=== PATIENT | female | born 1985 | race Two or more races ===

== ENCOUNTER → 2018-04-04 | Emergency (ER) | payer OTHER ==
[~2018-04-04] VITALS: Ht 167.6 cm; Wt 78.9 kg
[~2018-04-04] MED LIST: PROGESTERONE200 MG
== END | disposition home or self-care (01) ==
LOC: ER 03:06
DX: O02.1 Missed abortion (principal); Z34.01 Encounter for supervision of normal first pregnancy, first trimester

== ENCOUNTER → 2018-04-05 | Day surgery (SDC) | payer OTHER ==
[~2018-04-05] VITALS: Ht 167.6 cm; Wt 78.9 kg
== END | disposition home or self-care (01) ==
LOC: ER 12:33 → CIR.AMB 13:25
DX: O02.1 Missed abortion (principal)

== ENCOUNTER 2019-06-19 08:24 | Inpatient (IN) | payer OTHER ==
[~2019-06-19] VITALS: Ht 167.6 cm; Wt 92.5 kg
[2019-06-19] MEDS ORDERED: PRENATAL TABLE1 EAC1 PO (08:39)
[2019-06-19] MEDS ORDERED: IRON325 MG PO (08:39)
[2019-06-19] MEDS ORDERED: FOLIC ACID20 MG PO (08:40)
[2019-06-19] MEDS ORDERED: VITAMIN D1000 UNI1 PO (08:40)
== END 2019-06-21 11:06 | disposition home or self-care (01) | DRG 807 ==
LOC: SURG-SUITE 08:24 → LDR 08:24 → SURG-SUITE 21:32
PROVIDERS: ADMIT Obstetrics & Gynecology
PROC: 10E0XZZ Delivery of Products of Conception, External Approach (ICD-10-PCS; principal; 2019-06-19)
PROC: 3E033VJ Introduction of Other Hormone into Peripheral Vein, Percutaneous Approach (ICD-10-PCS; 2019-06-19)
PROC: 4A1HXCZ Monitoring of Products of Conception, Cardiac Rate, External Approach (ICD-10-PCS; 2019-06-19)
DX: O80 Encounter for full-term uncomplicated delivery (principal); Z37.0 Single live birth; Z3A.38 38 weeks gestation of pregnancy

== ENCOUNTER → 2019-12-21 | Emergency (ER) | payer OTHER ==
[~2019-12-21] VITALS: Ht 167.6 cm; Wt 90.7 kg
[~2019-12-21] MED LIST changes: +ATARAX25 MG; +BENADRYL25 MG; +FLUCONAZOLE50 MG; +FOLIC ACID20 MG PO; +HYDROCORT-PRAMOX4 GM; +IRON325 MG PO; +MEDROL4 MG; +MOMETASONE FURO15 G2; +NIX59 M1 TOP; +PRENATAL TABLE1 EAC1 PO; +VITAMIN C1000 MG; +VITAMIN D1000 UNI1 PO; +XYZAL5 MG
== END | disposition home or self-care (01) ==
LOC: ER 14:47
DX: B86 Scabies (principal)